=== PATIENT | male | born 1955 | race Caucasian/White ===

== ENCOUNTER 2018-11-08 20:44 | Emergency (ER) | payer OTHER ==
[~2018-11-08] VITALS: Ht 177.8 cm; Wt 99.8 kg
[~2018-11-08 20:44] MED LIST: BENZ200C25 PO; CYCL10TA9 PO; DOXY100C2 PO; HYDR1TAB PO; PRD20T PO; SILV25CR TP; TRAM50TA2 PO; [UNRECOGNIZED DRUG - REMARK]
--- NOTE | 2018-11-08 21:13 | ED Cough/URI ---
General Chief Complaint: Respiratory Problems Stated Complaint: BRONCHITIS NOT IMPROVING Nursing Triage Note: Pt reports being dx w/ bronchitis 8 days ago. Pt was seen at [facility] and given 2 z-packs, prednisone, and a shot. Pt reports he still does not feel any better and c/o productive cough, dizziness, EASON. Source: patient Exam Limitations: no limitations History of Present Illness Date Seen by Provider: Nov 08, 2018 Time Seen by Provider: 21:11 Initial Comments To ER with an 8 day history of productive cough. He's been seen at [facility] and given 2 courses of Zithromax, A shot (unknown what it was a shot of), a course of prednisone. He does not have any inhalers or nebulizers at home. He smokes 1-1.5 packs of cigarettes per day. No fevers or chills. Denies any improvement in the chest congestion. Timing/Duration: just prior to arrival Severity/Quality: productive cough Associated Symptoms: cough Allergies and Home Medications Allergies Coded Allergies: ibuprofen (Verified Allergy, 12/25/11) Home Medications Benzonatate 200 Mg Capsule, 1 EACH PO Q8HR PRN PRN for COUGH Prescribed by: SAMY VIRGEN on 09/19/131907 Cyclobenzaprine Hcl 10 Mg Tablet, 1 EACH PO Q8HR PRN PRN for SPASMS Prescribed by: SAMY VIRGEN on 09/19/131907 Doxycycline Hyclate 100 Mg Capsule, 1 EACH PO BID Prescribed by: SAMY VIGREN on 09/19/131907 Levofloxacin 500 Mg Tablet, 500 MG PO DAILY Prescribed by: ALLIE PRADO on 11/08/182150 Prednisone 20 Mg Tab, 40 MG PO DAILY Prescribed by: SAMY VIRGEN on 09/19/131907 Tramadol Hcl 50 Mg Tablet, 50 MG PO Q4H PRN for PAIN Prescribed by: SAMY VIRGEN on 09/19/131907 Patient Home Medication List Home Medication List Reviewed: Yes Review of Systems Review of Systems Constitutional: see HPI; No chills, No fever EENTM: see HPI Respiratory: see HPI, cough Cardiovascular: no symptoms reported Genitourinary: no symptoms reported Musculoskeletal: no symptoms reported Skin: no symptoms reported Psychiatric/Neurological: No Symptoms Reported Past Ynuteso-Jdhqzk-Txsijl Hx Patient Social History Alcohol Use: Rarely Uses Recreational Drug Use: No Smoking Status: Current Everyday Smoker Type Used: Cigarettes Recent Foreign Travel: No Contact w/Someone Who Travel: No Recent Infectious Disease Expo: No Recent Hopitalizations: No Immunizations Up To Date Date of Pneumonia Vaccine: Aug 10, 2007 Date of Influenza Vaccine: Aug 10, 2012 Seasonal Allergies Seasonal Allergies: No Past Medical History Surgeries: Yes Adenoidectomy, Appendectomy, Orthopedic, Tonsillectomy Respiratory: No Cardiac: Yes High Cholesterol, Hypertension Neurological: No Genitourinary: No Gastrointestinal: No Musculoskeletal: Yes Endocrine: Yes Diabetes, Non-Insulin dep HEENT: No Cancer: No Psychosocial: No Integumentary: No Blood Disorders: No Family Medical History No Pertinent Family Hx Physical Exam Vital Signs - First Documented 11/08/18 20:58 Temp 96.6 Pulse 93 Resp 18 B/P (MAP) 130/91 (104) Pulse Ox 97 O2 Delivery Room Air Capillary Refill : Less Than 3 Seconds Height: 5'10.00" Weight: 220lbs. oz. 99.377688kv; BMI Method:Stated General Appearance: WD/WN, no apparent distress Eyes: Bilateral Eye Normal Inspection, Bilateral Eye PERRL, Bilateral Eye EOMI HEENT: PERRL/EOMI, normal ENT inspection Neck: non-tender, full range of motion Respiratory: no respiratory distress, no accessory muscle use, wheezing ( expiratory wheeze left upper) Cardiovascular: regular rate, rhythm, no murmur Gastrointestinal: normal bowel sounds, non tender, soft Extremities: normal range of motion, non-tender Neurologic/Psychiatric: no motor/sensory deficits, alert, normal mood/affect Skin: normal color, warm/dry Progress/Results/Core Measures Suspected Sepsis Recent Fever Within 48 Hours: No Infection Criteria Present: Suspected New Infection New/Unexplained Altered Menta: No Sepsis Screen: Possible Sepsis Risk SIRS Temperature:96.6 Pulse: 93 Respiratory Rate: 18 Blood Pressure 130 /91 Mean: 104 Results/Orders My Orders Orders - ALLIE PRADO APRN Chest Pa/Lat (2 View) (11/08/18 21:09) Sputum Culture (11/08/18 21:09) Albuterol/Ipra Inhalation Soln (Duoneb I (11/08/18 21:15) Svn Small Volume Nebulizer (11/08/18 21:09) Levofloxacin Tablet (Levaquin Tablet) (11/08/18 22:00) Rx-Albuterol Inhaler (Rx-Proair) (11/08/18 21:51) Rx-Acetaminophen/Codeine (Rx-Tylenol #3) (11/08/18 22:00) Medications Given in ED Current Medications Medications Dose Ordered Sig/Cyrus Route Start Time Stop Time Status Last Admin Dose Admin Albuterol/ Ipratropium 3 ml ONCE ONCE INH 11/08/18 21:15 11/08/18 21:16 DC 11/08/18 21:48 3 ML Vital Signs/I&O 11/08/18 20:58 Temp 96.6 Pulse 93 Resp 18 B/P (MAP) 130/91 (104) Pulse Ox 97 O2 Delivery Room Air Capillary Refill : Less Than 3 Seconds Blood Pressure Mean: 104 Diagnostic Imaging Diagonstic Imaging: Xray Plain Films/CT/US/NM/MRI: chest Comments NAME: [facility] REC#: [id number] PT STATUS: REG ER : 1955 PHYSICIAN: ALLIE PRADO [employer]REL [employer] ADJUSTER ADMIT DATE: 11/08/18/ER Draft Date of Exam:11/08/18 CHEST PA/LAT (2 VIEW) INDICATION: Cough. TECHNIQUE: Two view chest 9:42 PM CORRELATION STUDY: None FINDINGS: The heart size, mediastinal configuration and pulmonary vasculature are within normal limits. Lung valles are somewhat hyperinflated with flattening of the diaphragms. There is parenchymal density left lung base suspect for small patchy area of infiltrate likely within the lingula. Right lung relatively clear. Multiple mild anteriorly wedged thoracic vertebral bodies with diffuse thoracic spondylosis. IMPRESSION: 1. Findings likely reflective of small area of infiltrate left lung base likely lingula. Given somewhat nodular appearance, followup two-view chest imaging until resolution is recommended to exclude underlying pulmonary nodule. Dictated on workstation # [id number] Dict: 11/08/182137 Trans: 11/08/182142 DURGA [id number] Interpreted by: DINH MELO DO Electronically signed by: Departure Impression Primary Impression: Pneumonia Qualified Codes: J18.9 - Pneumonia, unspecified organism Disposition: HOME, SELF-CARE Condition: Stable Departure-Patient Inst. Decision time for Depature: 21:12 Referrals: KIRBY JOY MD (PCP/Family) Primary Care Physician Patient Instructions: Acute Bronchitis, Adult (DC), Pneumonia, Adult (DC) Add. Discharge Instructions: 1. Return to ER for any concerns 2. All discharge instructions reviewed with patient and/or family. Voiced understanding. Scripts Levofloxacin (Levaquin) 500 Mg Tablet 500 MG PO DAILY, #6 TAB Prov: ALLIE PRADO APRN 11/08/18 ALLIE PRADO APRN Nov 08, 2018 21:13
[2018-11-08] MEDS ORDERED: RT-ALBUTEROL/IPRATROPIUM 3 ML (DUONEB) VIAL INH ONE (21:15)
--- NOTE | 2018-11-08 21:44 | Diagnostic Imaging Report ---
INDICATION: Cough. TECHNIQUE: Two view chest 9:42 PM CORRELATION STUDY: None FINDINGS: The heart size, mediastinal configuration and pulmonary vasculature are within normal limits. Lung valles are somewhat hyperinflated with flattening of the diaphragms. There is parenchymal density left lung base suspect for small patchy area of infiltrate likely within the lingula. Right lung relatively clear. Multiple mild anteriorly wedged thoracic vertebral bodies with diffuse thoracic spondylosis. IMPRESSION: 1. Findings likely reflective of small area of infiltrate left lung base likely lingula. Given somewhat nodular appearance, followup two-view chest imaging until resolution is recommended to exclude underlying pulmonary nodule. Dictated by: Dictated on workstation # [id number]
[2018-11-08] MEDS ORDERED: LEVO500T2 PO (21:51)
[2018-11-08] MEDS ORDERED: RX-ALBUTEROL INHALER (PROAIR) 8 GM IH STA (21:51)
[2018-11-08] MEDS ORDERED: LEVOFLOXACIN 500 MG TAB (LEVAQUIN) PO ONE (22:00)
[2018-11-08] MEDS ORDERED: RX-ACETAMINOPHEN/CODEINE TAB PPK #4 PO SCH (22:00)
[2018-11-08 22:16] VITALS: BP 130/91
== END 2018-11-08 22:16 | disposition home or self-care (01) ==
LOC: EDUNIT# 20:44 → ER 20:45
DX: J18.9 Pneumonia, unspecified organism (principal); E78.00 Pure hypercholesterolemia, unspecified; E11.9 Type 2 diabetes mellitus without complications; I10 Essential (primary) hypertension; F17.210 Nicotine dependence, cigarettes, uncomplicated; Z88.6 Allergy status to analgesic agent; Z79.52 Long term (current) use of systemic steroids; Z91.14 Patient's other noncompliance with medication regimen; Z90.89 Acquired absence of other organs
CPT/HCPCS: 71046; 87070; 87205

== ENCOUNTER 2019-09-02 18:55 | Emergency (ER) | payer OTHER ==
[~2019-09-02] VITALS: Ht 177 cm; Wt 95.0 kg
[~2019-09-02 18:55] MED LIST changes: +LEVO500T2 PO
--- NOTE | 2019-09-02 19:26 | ED Neck-Back Pain/Injury ---
General Chief Complaint: Head/Cervical Problems Stated Complaint: NECK PAIN Source of Information: Patient Exam Limitations: No Limitations History of Present Illness Date Seen by Provider: Sep 02, 2019 Time Seen by Provider: 19:25 Initial Comments To ER with reports of posterior midline neck pain at the base of the school across left to right. Movement significant only worsens this pain, when he turns his head, the pain radiates down the right side of the neck. No fever no chills no trauma no history of this. He has seen the chiropractor twice for this without any improvement, he saw urgent care and was given anti-inflammatories and prednisone, also given Flexeril but denies any improvement. Location: C-Spine Timing/Duration: 4-5 Days (started 5 days ago, he awakened in the morning withit) Severity: Moderate Pain/Injury Location: Neck Modifying Factors: Worse With Movement Allergies and Home Medications Allergies Coded Allergies: ibuprofen (Verified Allergy, 12/25/11) Home Medications Benzonatate 200 Mg Capsule, 1 EACH PO Q8HR PRN PRN for COUGH Prescribed by: SAMY VIRGEN on 09/19/131907 Cyclobenzaprine Hcl 10 Mg Tablet, 1 EACH PO Q8HR PRN PRN for SPASMS Prescribed by: SAMY VIRGEN on 09/19/131907 Doxycycline Hyclate 100 Mg Capsule, 1 EACH PO BID Prescribed by: SAMY VIRGEN on 09/19/131907 Levofloxacin 500 Mg Tablet, 500 MG PO DAILY Prescribed by: ALLIE PRADO on 11/08/182150 Prednisone 20 Mg Tab, 40 MG PO DAILY Prescribed by: SAMY VIRGEN on 09/19/131907 Tramadol Hcl 50 Mg Tablet, 50 MG PO Q4H PRN for PAIN Prescribed by: SAMY VIRGEN on 09/19/131907 Patient Home Medication List Home Medication List Reviewed: Yes Review of Systems Constitutional: see HPI EENTM: see HPI Respiratory: no symptoms reported Cardiovascular: no symptoms reported Genitourinary: no symptoms reported Musculoskeletal: see HPI, neck pain Skin: no symptoms reported Psychiatric/Neurological: No Symptoms Reported Past Ncahwok-Mcteuo-Loptbh Hx Patient Social History Type Used: Cigarettes Recent Foreign Travel: No Contact w/Someone Who Travel: No Recent Hopitalizations: No Immunizations Up To Date Date of Pneumonia Vaccine: Aug 10, 2007 Date of Influenza Vaccine: Aug 10, 2012 Seasonal Allergies Seasonal Allergies: No Past Medical History Surgeries: Yes Adenoidectomy, Appendectomy, Orthopedic, Tonsillectomy Respiratory: No Cardiac: Yes High Cholesterol, Hypertension Neurological: No Genitourinary: No Gastrointestinal: No Musculoskeletal: Yes Endocrine: Yes Diabetes, Non-Insulin dep HEENT: No Cancer: No Psychosocial: No Integumentary: No Blood Disorders: No Family Medical History No Pertinent Family Hx Physical Exam Vital Signs Vital Signs - First Documented 09/02/19 19:05 Temp 36.6 Pulse 86 Resp 20 B/P (MAP) 149/86 (107) Pulse Ox 96 O2 Delivery Room Air Capillary Refill : Height, Weight, BMI Height: 5'10.00" Weight: 220lbs. oz. 99.615863ib; BMI Method:Stated General Appearance: No Apparent Distress, WD/WN HEENT: PERRL/EOMI, TMs Normal, Normal ENT Inspection Neck: Full Range of Motion, Normal Inspection Respiratory: No Accessory Muscle Use, No Respiratory Distress Gastrointestinal: Normal Bowel Sounds, Non Tender, Soft Neurologic/Psychiatric: Alert, Oriented x3 Skin: Normal Color, Warm/Dry Progress/Results/Core Measures Results/Orders My Orders Orders - ALLIE PRADO APRN Ct Cervical Spine Wo (09/02/19 19:24) Hydrocodone/Apap 5/325 Tablet (Lortab 5 (09/02/19 19:30) Orphenadrine Injection (Norflex Injectio (09/02/19 19:30) Medications Given in ED Current Medications Medications Dose Ordered Sig/Cyrus Route Start Time Stop Time Status Last Admin Dose Admin Acetaminophen/ Hydrocodone Bitart 1 tab ONCE ONCE PO 09/02/19 19:30 09/02/19 19:31 DC 09/02/19 19:47 1 TAB Orphenadrine Citrate 60 mg ONCE ONCE IM 09/02/19 19:30 09/02/19 19:31 DC 09/02/19 19:46 60 MG Vital Signs/I&O 09/02/19 19:05 Temp 36.6 Pulse 86 Resp 20 B/P (MAP) 149/86 (107) Pulse Ox 96 O2 Delivery Room Air Departure Impression Primary Impression: Cervical spine pain Disposition: 01 HOME, SELF-CARE Condition: Stable Departure-Patient Inst. Decision time for Depature: 20:24 Referrals: ISELA SHAFER BRIAN J MD STEVENS, RACHEL L MD (PCP/Family) Primary Care Physician Patient Instructions: NO INSTRUCTIONS GIVEN Add. Discharge Instructions: 1. Follow up with one of the spine surgeons listed. 2. Return to ER for any concerns 3. Medication as directed All discharge instructions reviewed with patient and/or family. Voiced understanding. Scripts Hydrocodone/Acetaminophen (Jackson 5-325 Tablet) 1 Each Tablet 1 TAB PO Q6H for Pain MDD 10 TABS for 7 Days, #10 TAB Prov: ALLIE PRADO APRN 09/02/19 ALLIE PRADO APRN Sep 02, 2019 19:26
[2019-09-02] MEDS ORDERED: ORPHENADRINE 60 MG/2 ML (NORFLEX) AMP IM ONE (19:30)
[2019-09-02] MEDS ORDERED: HYDROcodone/APAP 5 MG/325 MG (LORTAB) TAB PO ONE (19:30)
--- NOTE | 2019-09-02 20:20 | Diagnostic Imaging Report ---
Clinical indication: Patient woke up Friday with neck pain that radiates down both sides when he moves. No known trauma. Exam: Axial CT scan of the cervical spine performed without IV contrast. Sagittal and coronal reformatted images are created. Auto Exposure Controls were utilized during the CT exam to meet ALARA standards for radiation dose reduction. Comparison: None. Findings: There is no acute cervical spine fracture or dislocation. There is cervical spine degenerative disease with vertebral body spurs and facet arthropathy. There are diffuse disc bulges and moderate loss of intervertebral disc height seen from the C2-T1 levels. There is mild bony central canal narrowing seen throughout the cervical spine. There is severe bilateral neural foramen narrowing at the C3-C4, C4-C5, left C5-C6 neural foramen and bilateral C6-C7 neural foraminal regions. There is no significant neck soft tissue abnormality. Visualized upper lung valles are clear. Impression: Multilevel cervical spine degenerative disease with no acute fracture or dislocation. Dictated by: Dictated on workstation # [id number]
[2019-09-02] MEDS ORDERED: HYDR-4226 PO (20:25)
[2019-09-02 20:30] VITALS: BP 137/80
== END 2019-09-02 20:36 | disposition home or self-care (01) ==
LOC: EDUNIT# 18:55 → ER 18:56
DX: M54.2 Cervicalgia (principal); I10 Essential (primary) hypertension; E11.9 Type 2 diabetes mellitus without complications; E78.00 Pure hypercholesterolemia, unspecified; Z88.6 Allergy status to analgesic agent; Z79.52 Long term (current) use of systemic steroids; Z90.49 Acquired absence of other specified parts of digestive tract; Z90.89 Acquired absence of other organs
CPT/HCPCS: 72125; 96372

== ENCOUNTER → 2020-04-18 | Outpatient (REF) ==
[~2020-04-18] MED LIST changes: +HYDR-4226 PO
--- NOTE | 2020-04-18 13:37 | Diagnostic Imaging Report ---
INDICATION: Left wrist injury. TIME OF EXAM: 12:55 p.m. TECHNIQUE: Three views of the left wrist were obtained. FINDINGS: There are degenerative changes at the radiocarpal joint. Significant joint space narrowing between the distal radius and lunate is noted. There is sclerosis and subchondral cyst formation present. No fractures are seen. Distal radius and ulna as well as carpal bones and metacarpals are intact. Alignment is normal. There is a small metallic density in the dorsal soft tissues of the wrist, consistent with small foreign body. IMPRESSION: 1. Degenerative changes. No acute bony abnormality is detected. There is a small metallic density just below the skin surface in the dorsum of the wrist, ulnar side, consistent with small foreign body. Dictated by: Dictated on workstation # [id number]
== END ==
LOC: OCC 12:35
PROVIDERS: ATTEND Family Medicine
DX: M19.032 Primary osteoarthritis, left wrist (principal)
CPT/HCPCS: 73110

== ENCOUNTER 2021-01-22 20:34 | Emergency (ER) | payer OTHER ==
[~2021-01-22] VITALS: Ht 177.8 cm; Wt 99.7 kg
[2021-01-22] MEDS ORDERED: SUCR1TAB (20:47)
[2021-01-22] MEDS ORDERED: LOVA40TA2 (20:47)
[2021-01-22] MEDS ORDERED: AMLO-251 (20:47)
[2021-01-22] MEDS ORDERED: GLIM4TAB5 (20:47)
[2021-01-22] MEDS ORDERED: LOSA100T57 (20:47)
[2021-01-22] MEDS ORDERED: CITA20TA9 (20:47)
--- NOTE | 2021-01-22 20:58 | ED Abdominal Pain ---
General Chief Complaint: Abdominal/GI Problems Stated Complaint: N/V/D, ABD PAIN Nursing Triage Note: sharp abdominal pain x2 weeks, started on carafate today without improvement. reports hx of ulcers. Sepsis Screen: No Definite Risk Source of Information: Patient Exam Limitations: No Limitations History of Present Illness Date Seen by Provider: Jan 22, 2021 Time Seen by Provider: 20:46 Initial Comments This is a 65 yo male who presented to the ED via POV with c/o of sharp abdominal pain x 2 weeks. States his pain started apx. 3 days after taking Prednisone 50mg burst for COVID symptoms. Reports extensive history of peptic ulcers and use to take Pepcid and Tagamet in the past. States he became resistant to these medications but has not had issues with his ulcers in many years. Was given pres cription for carafate today and took one pill with minimal improvement. States pain is same as prior episodes of ulcers. Reports darker stools, but no bloody, black or tarry stools. Denies fever, chills, cough, shortness of breath, chest pain, emesis, diarrhea. Allergies and Home Medications Allergies Coded Allergies: ibuprofen (Verified Allergy, Unknown, 01/22/21) Home Medications Pantoprazole Sodium 20 Mg Tablet.dr, 20 MG PO BID Prescribed by: DAVID PLUNKETT on 01/22/21 2226 Patient Home Medication List Home Medication List Reviewed: Yes Review of Systems Review of Systems Constitutional: no symptoms reported EENTM: No Symptoms Reported Respiratory: No Symptoms Reported Cardiovascular: No Symptoms Reported Gastrointestinal: See HPI Genitourinary: No Symptoms Reported Musculoskeletal: no symptoms reported Skin: no symptoms reported Psychiatric/Neurological: No Symptoms Reported Endocrine: No Symptoms Reported Hematologic/Lymphatic: No Symptoms Reported Past Kglxtls-Wvlgqc-Mkakga Hx Patient Social History Alcohol Use: Denies Use Smoking Status: Current Everyday Smoker Type Used: Cigarettes Recent Infectious Disease Expo: No Recent Hopitalizations: No Immunizations Up To Date Tetanus Booster (TDap): Unknown Date of Pneumonia Vaccine: Aug 10, 2007 Date of Influenza Vaccine: Aug 10, 2012 Seasonal Allergies Seasonal Allergies: No Past Medical History Surgeries: Yes Adenoidectomy, Appendectomy, Orthopedic, Tonsillectomy Respiratory: No Cardiac: Yes High Cholesterol, Hypertension Neurological: No Genitourinary: No Gastrointestinal: No Musculoskeletal: Yes Endocrine: Yes Diabetes, Non-Insulin dep HEENT: No Cancer: No Psychosocial: No Integumentary: No Blood Disorders: No Family Medical History No Pertinent Family Hx Physical Exam Vital Signs Vital Signs - First Documented 01/22/21 20:39 Temp 36.8 Pulse 80 Resp 16 B/P (MAP) 139/94 (109) Pulse Ox 93 O2 Delivery Room Air Capillary Refill : Less Than 3 Seconds Height/Weight/BMI Height: 5'10.00" Weight: 220lbs. oz. 99.443562tw; 31.00 BMI Method:Stated General Appearance: WD/WN, no apparent distress HEENT: PERRL/EOMI, normal ENT inspection Neck: full range of motion, normal inspection Respiratory: lungs clear, normal breath sounds Cardiovascular: normal peripheral pulses, regular rate, rhythm, no gallop Gastrointestinal: normal bowel sounds, soft; No no pulsatile mass; tenderness (mid/low abd pain with light and deep palpation ); No hernia, No hepatomegaly, No spleenomegaly Rectal: deferred Extremities: normal range of motion, normal inspection Back: normal inspection, no vertebral tenderness Neurologic/Psychiatric: no motor/sensory deficits, alert, normal mood/affect, oriented x 3 Skin: normal color, warm/dry Progress/Results/Core Measures Results/Orders Lab Results Laboratory Tests Test 01/22/21 21:07 01/22/21 21:11 Range/Units White Blood Count 11.6 H 4.3-11.0 10^3/uL Red Blood Count 4.88 4.30-5.52 10^6/uL Hemoglobin 14.8 13.3-17.7 g/dL Hematocrit 45 40-54 % Mean Corpuscular Volume 93 80-99 fL Mean Corpuscular Hemoglobin 30 25-34 pg Mean Corpuscular Hemoglobin Concent 33 32-36 g/dL Red Cell Distribution Width 11.9 10.0-14.5 % Platelet Count 294 130-400 10^3/uL Mean Platelet Volume 9.4 9.0-12.2 fL Immature Granulocyte % (Auto) 0 % Neutrophils (%) (Auto) 77 H 42-75 % Lymphocytes (%) (Auto) 13 12-44 % Monocytes (%) (Auto) 7 0-12 % Eosinophils (%) (Auto) 2 0-10 % Basophils (%) (Auto) 0 0-10 % Neutrophils # (Auto) 9.0 H 1.8-7.8 10^3/uL Lymphocytes # (Auto) 1.5 1.0-4.0 10^3/uL Monocytes # (Auto) 0.9 0.0-1.0 10^3/uL Eosinophils # (Auto) 0.2 0.0-0.3 10^3/uL Basophils # (Auto) 0.1 0.0-0.1 10^3/uL Immature Granulocyte # (Auto) 0.0 0.0-0.1 10^3/uL Sodium Level 140 135-145 MMOL/L Potassium Level 4.3 3.6-5.0 MMOL/L Chloride Level 103 98-107 MMOL/L Carbon Dioxide Level 27 21-32 MMOL/L Anion Gap 10 5-14 MMOL/L Blood Urea Nitrogen 10 7-18 MG/DL Creatinine 0.92 0.60-1.30 MG/DL Estimat Glomerular Filtration Rate > 60 BUN/Creatinine Ratio 11 Glucose Level 96 70-105 MG/DL Calcium Level 9.7 8.5-10.1 MG/DL Corrected Calcium 9.5 8.5-10.1 MG/DL Total Bilirubin 0.6 0.1-1.0 MG/DL Aspartate Amino Transf (AST/SGOT) 15 5-34 U/L Alanine Aminotransferase (ALT/SGPT) 17 0-55 U/L Alkaline Phosphatase 79 40-136 U/L Total Creatine Kinase 73 30-200 U/L Total Protein 7.3 6.4-8.2 GM/DL Albumin 4.3 3.2-4.5 GM/DL Lipase 8 8-78 U/L Urine Color YELLOW Urine Clarity CLEAR Urine pH 6.0 5-9 Urine Specific [place] 1.015 L 1.016-1.022 Urine Protein NEGATIVE NEGATIVE Urine Glucose (UA) NEGATIVE NEGATIVE Urine Ketones NEGATIVE NEGATIVE Urine Nitrite NEGATIVE NEGATIVE Urine Bilirubin NEGATIVE NEGATIVE Urine Urobilinogen 1.0 < = 1.0 MG/DL Urine Leukocyte Esterase NEGATIVE NEGATIVE Urine RBC (Auto) NEGATIVE NEGATIVE Urine RBC RARE /HPF Urine WBC NONE /HPF Urine Squamous Epithelial Cells RARE /HPF Urine Crystals NONE /LPF Urine Bacteria TRACE /HPF Urine Casts NONE /LPF Urine Mucus SMALL H /LPF Urine Culture Indicated NO My Orders Orders - DAVID PLUNKETT EMERGENCY ROOM NURSE Lidocaine 2% Viscous 15 Ml (Xylocaine Vi (01/22/21 21:00) Antacid Suspension (Mylanta Suspension (01/22/21 21:00) Ed Iv/Invasive Line Start (01/22/21 20:59) Cbc With Automated Diff (01/22/21 20:59) Comprehensive Metabolic Panel (01/22/21 20:59) Ua Culture If Indicated (01/22/21 20:59) Lipase (01/22/21 20:59) Creatine Kinase (01/22/21 20:59) Pantoprazole Injection (Protonix Injecti (01/22/21 22:15) Medications Given in ED Vital Signs/I&O 01/22/21 01/22/21 20:39 22:30 Temp 36.8 36.6 Pulse 80 80 Resp 16 18 B/P (MAP) 139/94 (109) 122/75 (109) Pulse Ox 93 94 O2 Delivery Room Air Room Air Blood Pressure Mean: 109 Progress Progress Note : Progress Note Pt. examined and in no acute distress. Reports symptoms are typical of prior episodes of peptic ulcers. Orders placed for GI cocktail and basic blood work. Labs reviewed and are unremarkable. Reports "90%" improvement after GI cocktail. Discussed having close follow up with general surgeon to have EGD for further evaluation. Placed on Protonix 20mg PO BID and to continue carafate as directed. Reviewed discharge plan of care and he is agreeable with plan. Departure Impression Primary Impression: Peptic ulcer symptoms Disposition: 01 HOME, SELF-CARE Condition: Improved Departure-Patient Inst. Decision time for Depature: 22:10 Referrals: KIRBY OLSON MD (PCP/Family) Primary Care Physician Patient Instructions: Peptic Ulcers (DC) Add. Discharge Instructions: Plan: 1. Follow up with Dr. Jacobo this week. Call office for appointment. 2. Avoid caffeine, spicy, greasy foods. Avoid NSAID's. 3. Take Carafate as directed by Dr. Olson. 4. Take Pantaprazole 20mg by mouth twice a day. 5. Follow up with Dr. Olson as needed. Dr. Jayjay Jacobo [email or web address] [address] [place] [id number] All discharge instructions reviewed with patient and/or family. Voiced understanding. Scripts Pantoprazole Sodium (Protonix) 20 Mg Tablet. 20 MG PO BID for 14 Days, #28 TAB 0 Refills Prov: DAVID PLUNKETT APRN 01/22/21 Work/School Note: Work Release Form Date Seen in the Emergency Department: Jan 22, 2021 Return to Work: Jan 24, 2021 Copy Copies To 1: JAYJAY JACOBO STORMY D APRN Jan 22, 2021 20:58
[2021-01-22] MEDS ORDERED: ANTACID SUSP 30 ML UDC (MYLANTA) PO ONE (21:00)
[2021-01-22] MEDS ORDERED: LIDOCAINE 2% VISCOUS 15 ML UDC PO ONE (21:00)
[2021-01-22 21:17] LABS: BASOPHILS # (AUTO) 0.1 10^3/uL (0.0-0.1); BASOPHILS % (AUTO) 0 % (0-10); EOSINOPHILS # (AUTO) 0.2 10^3/uL (0.0-0.3); EOSINOPHILS % (AUTO) 2 % (0-10); HEMATOCRIT 45 % (40-54); HEMOGLOBIN 14.8 g/dL (13.3-17.7); LYMPHOCYTES # (AUTO) 1.5 10^3/uL (1.0-4.0); LYMPHOCYTES % (AUTO) 13 % (12-44); MEAN CORPUSCULAR HEMOGLOBIN 30 pg (25-34); MEAN CORPUSCULAR HGB CONC 33 g/dL (32-36); MEAN CORPUSCULAR VOLUME 93 fL (80-99); MEAN PLATELET VOLUME 9.4 fL (9.0-12.2); MONOCYTES # (AUTO) 0.9 10^3/uL (0.0-1.0); MONOCYTES % (AUTO) 7 % (0-12); NEUTROPHILS % (AUTO) 77 % (42-75); PLATELET COUNT 294 10^3/uL (130-400); WHITE BLOOD COUNT 11.6 10^3/uL (4.3-11.0)
[2021-01-22 21:18] LABS: BILIRUBIN,URINE NEGATIVE (NEGATIVE); CLARITY,URINE CLEAR; COLOR,URINE YELLOW; GLUCOSE, URINE (UA) NEGATIVE (NEGATIVE); KETONES,URINE NEGATIVE (NEGATIVE); LEUKOCYTE ESTERASE ,URINE NEGATIVE (NEGATIVE); NITRITE,URINE NEGATIVE (NEGATIVE); PROTEIN,URINE NEGATIVE (NEGATIVE)
[2021-01-22 21:25] LABS: BACTERIA,URINE TRACE /HPF; RBC,URINE RARE /HPF; SQUAMOUS EPITHELIAL CELL,UR RARE /HPF
[2021-01-22 21:28] LABS: ALBUMIN 4.3 GM/DL (3.2-4.5); CHLORIDE 103 MMOL/L (98-107); POTASSIUM 4.3 MMOL/L (3.6-5.0); SODIUM 140 MMOL/L (135-145)
[2021-01-22 21:30] LABS: CALCIUM 9.7 MG/DL (8.5-10.1)
[2021-01-22 21:31] LABS: GLUCOSE 96 MG/DL (70-105); TOTAL PROTEIN 7.3 GM/DL (6.4-8.2)
[2021-01-22 21:32] LABS: CARBON DIOXIDE 27 MMOL/L (21-32)
[2021-01-22 21:33] LABS: BILIRUBIN,TOTAL 0.6 MG/DL (0.1-1.0)
[2021-01-22 21:34] LABS: ALKALINE PHOSPHATASE 79 U/L (40-136); CREATININE SERUM 0.92 MG/DL (0.60-1.30); GFR ESTIMATED > 60
[2021-01-22 21:35] LABS: BUN/CREATININE RATIO 11
[2021-01-22 21:38] LABS: CREATINE KINASE 73 U/L (30-200); LIPASE 8 U/L (8-78)
[2021-01-22] MEDS ORDERED: PANTOPRAZOLE 40 MG (PROTONIX) VIAL IV ONE (22:15)
[2021-01-22] MEDS ORDERED: PANT20TA2 PO (22:26)
[2021-01-22 22:29] LABS: ALANINE AMINOTRANSFERASE 17 U/L (0-55)
[2021-01-22 22:30] VITALS: BP 122/75
== END 2021-01-22 22:34 | disposition home or self-care (01) ==
LOC: EDUNIT# 20:34 → ER 20:36
DX: K27.9 Peptic ulcer, site unspecified, unspecified as acute or chronic, without hemorrhage or perforation (principal); I10 Essential (primary) hypertension; E11.9 Type 2 diabetes mellitus without complications; F17.210 Nicotine dependence, cigarettes, uncomplicated; Z88.6 Allergy status to analgesic agent
CPT/HCPCS: 36415; 80053; 81000; 82550; 83690; 85025

== ENCOUNTER 2022-02-08 19:37 | Emergency (ER) | payer OTHER ==
[~2022-02-08] VITALS: Ht 177.8 cm; Wt 90.2 kg
[~2022-02-08 19:37] MED LIST changes: +AMLO-251; +CITA20TA9; +GLIM4TAB5; +LOSA100T57; +LOVA40TA2; +PANT20TA2 PO; +SUCR1TAB
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
[2022-02-08] MEDS ORDERED: fentaNYL INJ 100 MCG/2 ML AMP IVP ONE (20:00)
--- NOTE | 2022-02-08 20:34 | Diagnostic Imaging Report ---
HISTORY: Right shoulder pain after injury. TECHNIQUE: 3 views of the right shoulder. COMPARISON: None. FINDINGS: There are mild degenerative changes in the right AC joint. Alignment appears normal. No acute fracture is seen in the right shoulder. There are mild degenerative changes in the glenohumeral joint. IMPRESSION: Degenerative changes in the right shoulder with no acute osseous abnormality seen. Dictated by: Dictated on workstation # [id number]
--- NOTE | 2022-02-08 20:34 | Diagnostic Imaging Report ---
HISTORY: Trauma, right shoulder injury. TECHNIQUE: 2 views of the right clavicle. COMPARISON: None. FINDINGS: No acute fracture is seen in the right clavicle. Alignment is normal. There are mild degenerative changes in the AC joint. IMPRESSION: No acute fracture in right clavicle. Dictated by: Dictated on workstation # [id number]
[2022-02-08] MEDS ORDERED: ACHD5005 PO (20:48)
[2022-02-08 21:10] VITALS: BP 119/68
== END 2022-02-08 21:16 | disposition home or self-care (01) ==
LOC: EDUNIT# 19:37 → ER 19:39
DX: S42.91XA Fracture of right shoulder girdle, part unspecified, initial encounter for closed fracture (principal); S40.811A Abrasion of right upper arm, initial encounter; E66.9 Obesity, unspecified; Z68.31 Body mass index [BMI] 31.0-31.9, adult; V86.56XA Driver of dirt bike or motor/cross bike injured in nontraffic accident, initial encounter
CPT/HCPCS: 73000; 73030; 99284; A4565

== ENCOUNTER 2022-12-31 20:34 | Emergency (ER) | payer OTHER ==
[~2022-12-31] VITALS: Ht 177 cm; Wt 95.2 kg
[~2022-12-31 20:34] MED LIST changes: +ACHD5005 PO; +METH-731 PO; +ONDA4TAB11 PO
[2022-12-31 21:01] VITALS: BP 123/76
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
== END 2022-12-31 22:45 | disposition left against medical advice (07) ==
LOC: EDUNIT# 20:34 → ER 20:35
DX: M25.552 Pain in left hip (principal); F17.210 Nicotine dependence, cigarettes, uncomplicated; Z28.310 Unvaccinated for COVID-19; W01.0XXA Fall on same level from slipping, tripping and stumbling without subsequent striking against object, initial encounter; Y92.810 Car as the place of occurrence of the external cause

== ENCOUNTER 2023-05-23 13:25 | Emergency (ER) | payer MEDICARE ==
[~2023-05-23] VITALS: Ht 177 cm; Wt 90.7 kg
[~2023-05-23 13:25] MED LIST changes: -LOSA100T57; +LOSA100T58
[2023-05-23] MEDS ORDERED: NS IV 1000 ML 1,000 ML IV STA (13:40)
--- NOTE | 2023-05-23 13:43 | ED GI ---
General Stated Complaint: DEHYDRATED Source of Information: Patient Exam Limitations: No Limitations History of Present Illness Date Seen by Provider: May 23, 2023 Time Seen by Provider: 13:33 Initial Comments 68-year-old male presents to the emergency department today for an upset stomach. He vomited once on Friday and has had nausea with an upset stomach since that time. He saw his primary doctor couple days ago who wanted him come to the emergency department at that time but he declined. They thought he might be dehydrated and recommended to get IV fluids. He is continued to be nauseated and have an upset stomach but is no longer vomiting. Normal stooling. No urinary symptoms though he does state that he is only urinated once today since 430 this morning. No fevers or chills. No cough. All other systems reviewed and negative except documented per HPI. Voice recognition software was used to help create this chart Allergies and Home Medications Allergies Coded Allergies: ibuprofen (Verified Allergy, Unknown, 01/22/21) Patient Home Medication List Home Medication List Reviewed: Yes Amlodipine Besylate (Amlodipine Besylate) 10 Mg Tablet, (Reported) Entered as Reported by: DAISY ASHLEY on 01/22/212046 Citalopram Hydrobromide (Citalopram HBr) 20 Mg Tablet, (Reported) Entered as Reported by: DAISY ASHLEY on 01/22/212046 Glimepiride (Glimepiride) 4 Mg Tablet, (Reported) Entered as Reported by: DAISY ASHLEY on 01/22/212046 Hydrocodone/Acetaminophen (Hydrocodone-Acetamin 5-325 mg) 1 Each Tablet, 1 TAB PO Q6H PRN for PAIN-MODERATE (5-7) Prescribed by: ROBERT JON on 02/08/222048 Losartan Potassium (Losartan Potassium) 100 Mg Tablet, (Reported) Entered as Reported by: DAISY ASHLEY on 01/22/212046 Lovastatin (Lovastatin) 40 Mg Tablet, (Reported) Entered as Reported by: DAISY ASHLEY on 01/22/212046 Methocarbamol (Methocarbamol) 500 Mg Tablet, 1,500 MG PO Q6-8HR PRN for neck muscle spasm Prescribed by: SHEFALI HEART on 02/14/22 0733 Ondansetron (Ondansetron Odt) 4 Mg Tab.rapdis, 4 MG PO Q6H PRN for nausea Prescribed by: SHEFALI HEART on 02/14/22 0733 Pantoprazole Sodium (Protonix) 20 Mg Tablet.dr, 20 MG PO BID Prescribed by: DAVID PLUNKETT on 01/22/212225 Sucralfate (Sucralfate) 1 Gm Tablet, (Reported) Entered as Reported by: DAISY ASHLEY on 01/22/212046 Review of Systems Review of Systems Constitutional: see HPI Past Jljggrc-Fsoadq-Rsmcsd Hx Patient Social History Tobacco Use?: Yes Tobacco type used: Cigarettes Use of E-Cig and/or Vaping dev: No Substance use?: No Alcohol Use?: No Immunizations Up To Date Tetanus Booster (TDap): Unknown Seasonal Allergies Seasonal Allergies: No Past Medical History Surgery/Hospitalization HX: t/a, appy, htn, hyperlipidemia, niddm, gerd Surgeries: Yes Adenoidectomy, Appendectomy, Orthopedic, Tonsillectomy Respiratory: No Cardiac: Yes High Cholesterol, Hypertension Neurological: No Genitourinary: No Gastrointestinal: No Musculoskeletal: Yes Fractures Endocrine: Yes Diabetes, Non-Insulin dep HEENT: No Cancer: No Psychosocial: Yes Sleep Difficulties, Anxiety, Depression Integumentary: No Blood Disorders: No Family Medical History No Pertinent Family Hx SOCIAL HISTORY: -SMOKES AT LEAST 1 PPD -DENIES DRUG USE -ETOH--BEER/HARD LIQUOR A COUPLE OF TIMES A WEEK PAST SURGICAL HISTORY: -TONSILLECTOMY/ADENOIDECTOMY -APPENDECTOMY -LEFT HAND SURGERY -RIGHT SHOULDER SURGERY -RIGHT ANKLE FX/ ORIF Physical Exam Vital Signs Vital Signs - First Documented 05/23/23 13:36 Pulse 100 Resp 18 B/P (MAP) 121/83 (96) Pulse Ox 94 O2 Delivery Room Air Capillary Refill : Height/Weight/BMI Height: 5'10.00" Weight: 220lbs. oz. 99.052713ad; 30.00 BMI Method:Stated General Appearance: WD/WN, no apparent distress HEENT: normal ENT inspection, pharynx normal Neck: non-tender, supple, normal inspection Respiratory: chest non-tender, no respiratory distress, no accessory muscle use, wheezing Cardiovascular: regular rate, rhythm, no murmur Gastrointestinal: normal bowel sounds, non tender, soft, no organomegaly, no pulsatile mass Extremities: normal range of motion, normal inspection, normal capillary refill Neurologic/Psychiatric: alert, normal mood/affect, oriented x 3 Skin: normal color, warm/dry Lymphatic: no adenopathy Progress/Results/Core Measures Results/Orders Lab Results Laboratory Tests Test 05/23/23 13:45 Range/Units White Blood Count 7.9 4.3-11.0 10^3/uL Red Blood Count 4.74 4.30-5.52 10^6/uL Hemoglobin 14.7 13.3-17.7 g/dL Hematocrit 44 40-54 % Mean Corpuscular Volume 94 80-99 fL Mean Corpuscular Hemoglobin 31 25-34 pg Mean Corpuscular Hemoglobin Concent 33 32-36 g/dL Red Cell Distribution Width 12.3 10.0-14.5 % Platelet Count 258 130-400 10^3/uL Mean Platelet Volume 9.7 9.0-12.2 fL Immature Granulocyte % (Auto) 0 % Neutrophils (%) (Auto) 62 42-75 % Lymphocytes (%) (Auto) 24 12-44 % Monocytes (%) (Auto) 10 0-12 % Eosinophils (%) (Auto) 4 0-10 % Basophils (%) (Auto) 1 0-10 % Neutrophils # (Auto) 4.8 1.8-7.8 10^3/uL Lymphocytes # (Auto) 1.9 1.0-4.0 10^3/uL Monocytes # (Auto) 0.8 0.0-1.0 10^3/uL Eosinophils # (Auto) 0.3 0.0-0.3 10^3/uL Basophils # (Auto) 0.1 0.0-0.1 10^3/uL Immature Granulocyte # (Auto) 0.0 0.0-0.1 10^3/uL Sodium Level 138 135-145 MMOL/L Potassium Level 4.3 3.6-5.0 MMOL/L Chloride Level 107 98-107 MMOL/L Carbon Dioxide Level 22 21-32 MMOL/L Anion Gap 9 5-14 MMOL/L Blood Urea Nitrogen 22 H 7-18 MG/DL Creatinine 0.97 0.60-1.30 MG/DL Estimat Glomerular Filtration Rate 86 BUN/Creatinine Ratio 23 Glucose Level 127 H 70-105 MG/DL Calcium Level 9.6 8.5-10.1 MG/DL Corrected Calcium 9.4 8.5-10.1 MG/DL Total Bilirubin 0.5 0.1-1.0 MG/DL Aspartate Amino Transf (AST/SGOT) 19 5-34 U/L Alanine Aminotransferase (ALT/SGPT) 16 0-55 U/L Alkaline Phosphatase 57 40-136 U/L Total Protein 6.9 6.4-8.2 GM/DL Albumin 4.3 3.2-4.5 GM/DL My Orders Orders - JONATAN HUDSON DO Comprehensive Metabolic Panel (05/23/23 13:40) Cbc With Automated Diff (05/23/23 13:40) Ondansetron Injection (Zofran Injectio (05/23/23 13:45) Ns Iv 1000 Ml (Sodium Chloride 0.9%) (05/23/23 13:40) Medications Given in ED Current Medications Medications Dose Ordered Sig/Cyrus Route Start Time Stop Time Status Last Admin Dose Admin Ondansetron HCl 8 mg ONCE ONCE IVP 05/23/23 13:45 05/23/23 13:46 DC 05/23/23 13:51 8 MG Vital Signs/I&O 05/23/23 13:36 Pulse 100 Resp 18 B/P (MAP) 121/83 (96) Pulse Ox 94 O2 Delivery Room Air Departure Communication (Admissions) Patient is hemodynamically stable. He has no abdominal tenderness whatsoever. His vital signs are normal. Carmen Cohn reviewed all his labs and they are normal. He is given a liter of IV fluids as well as some IV Zofran. No emesis here and he is only in fact had 1 episode of vomiting since Friday. He is discharged home in stable condition with supportive care Impression Primary Impression: Nausea Disposition: 01 HOME, SELF-CARE Condition: Stable Departure-Patient Inst. Referrals: EVANS ROBERTSON APRN (PCP/Family) Primary Care Physician Patient Instructions: Nausea and Vomiting, Adult (DC) Add. Discharge Instructions: Take the nausea medication as prescribed as needed by dissolving it under your tongue. Increase your fluids at home and rest. Return to the emergency department for any severe concerns Scripts Ondansetron (Ondansetron Odt) 8 Mg Tab.rapdis 8 MG SL Q6H PRN for NAUSEA/VOMITING for 5 Days, #20 TAB Prov: JONATAN HUDSON DO 05/23/23 JONATAN HUDSON DO May 23, 2023 13:43
[2023-05-23] MEDS ORDERED: ONDANSETRON 4 MG/2 ML (SDV) Z0FRAN IVP ONE (13:45)
[2023-05-23 13:48] LABS: BASOPHILS # (AUTO) 0.1 10^3/uL (0.0-0.1); BASOPHILS % (AUTO) 1 % (0-10); EOSINOPHILS # (AUTO) 0.3 10^3/uL (0.0-0.3); EOSINOPHILS % (AUTO) 4 % (0-10); HEMATOCRIT 44 % (40-54); HEMOGLOBIN 14.7 g/dL (13.3-17.7); LYMPHOCYTES # (AUTO) 1.9 10^3/uL (1.0-4.0); LYMPHOCYTES % (AUTO) 24 % (12-44); MEAN CORPUSCULAR HEMOGLOBIN 31 pg (25-34); MEAN CORPUSCULAR HGB CONC 33 g/dL (32-36); MEAN CORPUSCULAR VOLUME 94 fL (80-99); MEAN PLATELET VOLUME 9.7 fL (9.0-12.2); MONOCYTES # (AUTO) 0.8 10^3/uL (0.0-1.0); MONOCYTES % (AUTO) 10 % (0-12); NEUTROPHILS # (AUTO) 4.8 10^3/uL (1.8-7.8); NEUTROPHILS % (AUTO) 62 % (42-75); PLATELET COUNT 258 10^3/uL (130-400); WHITE BLOOD COUNT 7.9 10^3/uL (4.3-11.0)
[2023-05-23 13:59] LABS: ALBUMIN 4.3 GM/DL (3.2-4.5); POTASSIUM 4.3 MMOL/L (3.6-5.0)
[2023-05-23 14:00] LABS: CALCIUM 9.6 MG/DL (8.5-10.1)
[2023-05-23 14:01] LABS: TOTAL PROTEIN 6.9 GM/DL (6.4-8.2)
[2023-05-23 14:03] LABS: BILIRUBIN,TOTAL 0.5 MG/DL (0.1-1.0)
[2023-05-23 14:05] LABS: CREATININE SERUM 0.97 MG/DL (0.60-1.30)
[2023-05-23] MEDS ORDERED: ONDA8TAB13 SL (14:28)
[2023-05-23 15:25] VITALS: BP 121/83
== END 2023-05-23 15:24 | disposition home or self-care (01) ==
LOC: EDUNIT# 13:25 → ER 13:27
DX: R11.0 Nausea (principal); F17.210 Nicotine dependence, cigarettes, uncomplicated; Z28.310 Unvaccinated for COVID-19
CPT/HCPCS: 36415; 80053; 85025

== ENCOUNTER → 2023-07-08 | Outpatient (CLI) | payer MEDICARE ==
[~2023-07-08] MED LIST changes: +ONDA8TAB13 SL
--- NOTE | 2023-07-08 15:58 | Diagnostic Imaging Report ---
EXAMINATION: Left wrist radiograph EXAM DATE: 07/08/2023 3:47 PM COMPARISON: 04/18/2020. HISTORY: Left wrist pain. TECHNIQUE: Two views FINDINGS: There is no acute fracture, dislocation, or destructive osseous process. There is degenerative joint space narrowing and subchondral cystic change seen along the radiocarpal joints. The soft tissues are normal. IMPRESSION: 1. Degenerative changes of the left wrist without acute osseous abnormality. Dictated by: Dictated on workstation # [id number]
== END ==
LOC: RAD 15:08
PROVIDERS: ATTEND Nurse Practitioner Family
DX: M19.032 Primary osteoarthritis, left wrist (principal)
CPT/HCPCS: 73100